=== PATIENT | male | born 1985 | race Asian ===

== ENCOUNTER 2023-04-23 19:03 | Emergency (ER) | payer OTHER ==
[~2023-04-23] VITALS: Ht 167.6 cm; Wt 76.4 kg
[2023-04-24] MEDS ORDERED: ceFAZolin SOD 2 GM in IV 1 EA IV ONE (06:25)
[2023-04-24] MEDS ORDERED: LIDOCAINE 1% MDV 20ML VIAL IM ONE (06:35)
[2023-04-24] MEDS ORDERED: KETOROLAC 30 MG/ML 1ML VIAL IV ONE (06:35)
[2023-04-24] MEDS ORDERED: CEPH500C PO (07:23)
[2023-04-24] MEDS ORDERED: BACITRACIN OINTMENT 30GM TUBE TOP ONE (07:25)
[2023-04-24 08:30] VITALS: BP 119/78; TEMP 96.7; O2SAT 97
== END 2023-04-24 08:34 | disposition home or self-care (01) ==
LOC: M ED 19:03
DX: S62.632A Displaced fracture of distal phalanx of right middle finger, initial encounter for closed fracture (principal); S61.212A Laceration without foreign body of right middle finger without damage to nail, initial encounter; S60.131A Contusion of right middle finger with damage to nail, initial encounter; W26.8XXA Contact with other sharp object(s), not elsewhere classified, initial encounter; Y92.009 Unspecified place in unspecified non-institutional (private) residence as the place of occurrence of the external cause; Y93.89 Activity, other specified; Y99.9 Unspecified external cause status; Z79.899 Other long term (current) drug therapy
CPT/HCPCS: 12001; 73140; 96365; 96375; 99284; J0690; J1885